=== PATIENT | female | born 1960 | race Caucasian/White ===

== ENCOUNTER → 2016-10-30 | Outpatient (CLI) | payer BC, OTHER ==
[~2016-10-30] MED LIST: ABILIFY10 MG PO; ADRENACLIC0.15 MG/0. IM; ADVAIR 250-501 EACH IH; ALLEGRA180 MG PO; ALPRAZOLAM0.5 M1 PO; AMBIEN 10 MG TA10 MG PO; BRINTELLIX5 MG PO; CEFDINIR300 MG PO; CELEBREX PO; CITRATE OF MAG296 ML PO; CLONAZEPAM 0.50.5 M1 PO; CLONAZEPAM PO; COLACE100 MG PO; DARVON-N100 MG PO; DARVON65 MG PO; EFFEXOR XR75 MG PO; ETODOLAC 400 M400 M1 PO; FENTANYL 1100 MCG/HR TRANSDERM; FIORICET 50-321 EACH PO; KEFLEX250 MG PO; LORTAB 5 MG/5001 TAB PO; MEDROLDOSEPACK PO; METAXALL800 MG PO; NEURONTIN 300300 M1 PO; NORCO 5-325 TA1 EACH PO; NORFLEX100 MG PO; OMEPRAZOLE40 MG PO; PERCOCET 10-321 EACH PO; PHENERGAN 25 MG25 M1 PO; PREDNISONE 20 M20 M1 PO; PROTONIX40 M1 PO; SAVELLA50 MG PO; SIMVASTATIN40 MG PO; SKELAXIN 800 M800 M1 PO; SPIRIVA INH; TORADOL; TORADOL 10 MG T10 MG PO; TRAZODONE 150150 M1 PO; ZANTAC 150MG T150 M1 PO; ZPAK PO
== END ==
LOC: CAT 16:24
DX: R06.00 Dyspnea, unspecified (principal); R07.9 Chest pain, unspecified

== ENCOUNTER → 2016-12-27 | Outpatient (CLI) | payer BC, OTHER | LOC: PUL 07:02 | DX: J45.909 Unspecified asthma, uncomplicated (principal) ==

== ENCOUNTER → 2017-01-23 | Outpatient (CLI) | payer BC, OTHER | LOC: CAT 12-24 08:01 | DX: J84.9 Interstitial pulmonary disease, unspecified (principal); R93.8 Abnormal findings on diagnostic imaging of other specified body structures ==

== ENCOUNTER → 2017-05-03 | Outpatient (CLI) | payer BC, OTHER | LOC: CAT 13:38 | DX: J84.10 Pulmonary fibrosis, unspecified (principal) ==

== ENCOUNTER → 2018-02-06 | Outpatient (CLI) | payer BC, OTHER | LOC: MRI 10:07 | DX: M75.81 Other shoulder lesions, right shoulder (principal); Z87.891 Personal history of nicotine dependence; Z88.0 Allergy status to penicillin ==